=== PATIENT | male | born 1980 | race Caucasian/White ===

== ENCOUNTER 2019-12-29 09:16 | Emergency (ER) | payer OTHER ==
[~2019-12-29] VITALS: Ht 175.3 cm; Wt 140.6 kg
[2019-12-29] MEDS ORDERED: Bactrim Ds Tab1 EACH PO (10:59)
== END 2019-12-29 11:41 | disposition home or self-care (01) ==
LOC: ER 09:16
DX: L72.3 Sebaceous cyst (principal); Z23 Encounter for immunization
CPT/HCPCS: 90471; 90714; 99282; A9270-GY